=== PATIENT | male | born 1965 | race African-American/Black ===

== ENCOUNTER 2017-02-09 00:30 | Emergency (ER) | payer BC ==
[~2017-02-09] VITALS: Ht 180.3 cm; Wt 86.0 kg
[2017-02-09] MEDS ORDERED: KETOROLAC 30MG/ML VIAL IM STA (05:18)
[2017-02-09] MEDS ORDERED: ONDANSETRON 4MG ODT PO STA (05:18)
[2017-02-09 05:35] LABS: BASOPHILS % 1.1 % (0.0-2.0); EOSINOPHILS % 2.4 % (0.0-5.0); HEMATOCRIT. 42.8 % (42.0-52.0); HEMOGLOBIN. 13.9 g/dL (14.0-18.0); MEAN CORPUSCULAR HEMOGLOBIN 28.5 pg (28.0-32.0); MEAN CORPUSCULAR VOLUME 87.8 fL (80.0-94.0); MEAN PLATELET VOLUME 8.3 fl (7.4-10.4); MONOCYTES % 6.9 % (2.0-8.0); NEUTROPHILS % 59.6 % (40.0-76.0); PLATELET 268 x1000/uL (130-400); RED BLOOD CELL COUNT 4.87 mill/uL (4.7-6.1); RED CELL DISTRIBUTION WIDTH 13.1 % (11.6-14.6)
[2017-02-09 05:42] LABS: INR 1.1; PROTHROMBIN TIME 11.7 sec (9.4-11.6)
[2017-02-09 06:06] LABS: CARBON DIOXIDE 26 mEq/L (21-32); CHLORIDE 109 mEq/L (98-107)
[2017-02-09 07:00] VITALS: BP 135/88
== END 2017-02-09 07:09 | disposition home or self-care (01) ==
LOC: ER 00:30
DX: R51 Headache (principal)
CPT/HCPCS: 36415; 80053; 85025; 85610; 93005; 99285; Q0162; J1885